=== PATIENT | female | born 1955 | race Caucasian/White ===

== ENCOUNTER 2022-02-22 09:49 | Outpatient (CLI) | payer OTHER, MEDICAID, SELFPAY ==
--- NOTE | 2022-02-25 18:21 | WPDHOLTEREM ---
Holter/Event Monitor Holter/Event Monitor Date of procedure: 02/22/22 Holter/Event Procedure: 48 Hr Holter Monitor Diagnosis: Dizziness and hypertension Indications: Dizziness and hypertension Image/Tracing Quality: Good Finding: The patient was monitored for 48 hours. The underlying rhythm was sinus with a minimum heart rate of 53 beats per minute, average heart rate of 76 beats per minute and maximum rate of 121 beats per minute. Rare PVCs were seen. Very APCs were seen. There is one 6 beat run of atrial tachycardia which occurred at 5:41 a.m. a.m., heart rate about 100. There is no atrial fibrillation, heart block, pauses, or ventricular tachycardia. No symptoms were recorded Conclusion: Rare APCs and PVCs One 6 beat run of atrial tachycardia as described above No symptoms were record
== END 2022-02-22 09:50 | disposition home or self-care (01) ==
PROVIDERS: PCP Physician Assistant; Visit Provider Physician Assistant
DX: R42 Dizziness and giddiness (principal); I10 Essential (primary) hypertension
CPT/HCPCS: 93225; 93226